=== PATIENT | male | born 1985 | race Caucasian/White ===

== ENCOUNTER 2018-06-27 12:18 | Emergency (ER) | payer BC ==
[2018-06-27 12:33] VITALS: BP 138/83; PULSE 91; RESP 18; TEMP 98.1; O2SAT 98; BMI 30.9
--- NOTE | 2018-06-27 13:03 | ED PDOC ---
Arrival/HPI - General Chief Complaint: Wound Check Time Seen by Provider: 06/27/18 12:59 Historian: Patient - History of Present Illness Narrative History of Present Illness (Text): 06/27/18 13:03 32-year-old male presents today for a wound check. Patient states evening he sustained a laceration to the chin and received 6 sutures. Patient [place] and he was wendi rned about the laceration repair and wanted to come to the emergency room to make sure that the wound looked well. pt states he was placed on Augmentin and is currently taking it. pt states he has also been applying Fucidin antibiotic cream. Patient denies any pain. Denies fevers or chills. States he has been changing the dressing. No other complaints Past Medical History - Provider Review Nursing Documentation Reviewed: Yes - Travel History Have you recently traveled outside [place] w/in the past 3 mons?: No - Infectious Disease Hx of Infectious Diseases: None - Psychiatric Hx Substance Use: No - Surgical History Hx Appendectomy: Yes (2003) Family/Social History - Physician Review Nursing Documentation Reviewed: Yes Family/Social History: Unknown Family HX Smoking Status: Current Some Days Smoker Hx Alcohol Use: No Hx Substance Use: No Allergies/Home Meds Allergies/Adverse Reactions: Allergies No Known Allergies Allergy (Verified 08/05/15 14:08) Home Medications: Home Meds Medication Instructions Recorded Confirmed No Known Home Med 08/05/15 06/27/18 Review of Systems - Review of Systems Constitutional: absent: Fatigue, Fevers ENT: absent: Sore Throat, Sinus Congestion Respiratory: absent: SOB, Cough Cardiovascular: absent: Chest Pain, Palpitations Gastrointestinal: absent: Abdominal Pain, Nausea, Vomiting Musculoskeletal: absent: Back Pain, Neck Pain Skin: Laceration Neurological: absent: Headache, Dizziness Psychiatric: absent: Anxiety, Depression Physical Exam Vital Signs Reviewed: Yes Vital Signs Temp Pulse Resp BP Pulse Ox 06/27/18 12:32 98.1 F 91 H 18 138/83 98 Temperature: Afebrile Blood Pressure: Normal Pulse: Regular Respiratory Rate: Normal Appearance: Positive for: Well-Appearing, Non-Toxic, Comfortable Pain Distress: None Mental Status: Positive for: Alert and Oriented X 3 - Systems Exam Head: Present: Laceration (there is a healing 4cm linear laceration to the chin with [address]; no edema, no erythema; no ecchymosis; no tenderness. no purulent discharge. ) Neck: Present: Normal Range of Motion Respiratory/Chest: Present: Clear to Auscultation, Good Air Exchange. No: Respiratory Distress, Accessory Muscle Use Cardiovascular: Present: Regular Rate and Rhythm, Normal S1, S2. No: Murmurs Neurological: Present: GCS=15 Skin: Present: Warm, Dry, Normal Color Psychiatric: Present: Alert, Oriented x 3 Medical Decision Making ED Course and Treatment: 06/27/18 13:12 32-year-old male presents today for a wound check of a laceration to the chin. [address] No signs of infection. Wound healing well. Tetanus was updated Patient was advised to continue antibiotics and antibiotic cream as prescribed. Patient was advised to return in 2 more days for suture removal as that would be the fifth day that the sutures have been in place. Patient verbalizes understanding of discharge instructions and need for immediate followup. all aspects of this case were discussed the attending of record. Impression: Wound check, laceration Keep wound clean and dry Return in 2 days for suture removal Return immediately if symptoms worsen persist or if new concerning symptoms develop: High fevers, increasing pain, increasing redness, increasing swelling, purulent discharge Follow-up with the plastic surgeon within the next 2 days Return if any other concerning symptoms develop. Disposition/Present on Arrival - Present on Arrival Any Indicators Present on Arrival: No History of DVT/PE: No History of Uncontrolled Diabetes: No Urinary Catheter: No History of Decub. Ulcer: No History Surgical Site Infection Following: None - Disposition Have Diagnosis and Disposition been Completed?: Yes Diagnosis: Visit for wound check Disposition: HOME/ ROUTINE Disposition Time: 13:01 Patient Plan: Discharge Patient Problems: Current Active Problems Problem Status Onset Visit for wound check Acute Condition: GOOD Discharge Instructions (ExitCare): Laceration Repair With Stitches (DC) Additional Instructions: Keep wound clean and dry Return in 2 days for suture removal Return immediately if symptoms worsen persist or if new concerning symptoms develop: High fevers, increasing pain, increasing redness, increasing swelling, purulent discharge Follow-up with the plastic surgeon within the next 2 days Return if any other concerning symptoms develop. Referrals: Freya Nam MD [Staff Provider] - Follow up with primary Barbara Hernandez MD [Medical Doctor] - Follow up with primary [facility] [Outside] - Follow up with primary
[2018-06-27] MEDS ORDERED: TDAP Vaccine 0.5 mL Syr IM ONE (13:09)
== END 2018-06-27 13:20 | disposition home or self-care (01) ==
LOC: ED 12:18
DX: S01.81XD Laceration without foreign body of other part of head, subsequent encounter (principal); Z23 Encounter for immunization